=== PATIENT | male | born 1950 | race Hispanic/Latino ===

== ENCOUNTER 2024-11-26 05:49 | Day surgery (SDC) | payer MEDICARE ==
[2024-11-22 11:38] LABS: BASOPHILS # (AUTO) 0.06 K/uL (0.00-0.20); BASOPHILS % (AUTO) 0.7 % (0.0-5.0); EOSINOPHILS # (AUTO) 0.26 K/uL (0.00-0.70); EOSINOPHILS % (AUTO) 2.9 % (0.0-8.0); HEMATOCRIT 41.6 % (42-54); IMMATURE GRANULOCYTE ABSOLUTE 0.03 K/uL (0-1); LYMPHOCYTES # (AUTO) 1.9 K/uL (1.0-4.8); LYMPHOCYTES % (AUTO) 20.8 % (21.0-51.0); MEAN CORPUSCULAR HEMOGLOBIN 30.9 pg (27.0-33.0); MEAN CORPUSCULAR HGB CONC 34.1 g/dL (32.0-36.0); MEAN CORPUSCULAR VOLUME 90.6 fL (79-99); MONOCYTES # (AUTO) 0.8 K/uL (0.1-1.0); MONOCYTES % (AUTO) 9.1 % (3.0-13.0); NEUTROPHILS # (AUTO) 5.9 K/uL (1.8-7.7); NEUTROPHILS % (AUTO) 66.2 % (40.0-77.0); PLATELET COUNT (AUTO) 226 K/uL (130-400); RED BLOOD CELL COUNT(AUTO) 4.59 MIL/uL (4.50-6.20); RED CELL DISTRIBUTION WIDTH 12.3 % (11.0-15.5); WHITE BLOOD COUNT (AUTO) 8.9 K/uL (4.8-10.8)
[2024-11-22 11:42] VITALS: BP 113/64; PULSE 77; RESP 18; TEMP 97.5
[2024-11-22 11:46] LABS: CREATININE 1.3 mg/dL (0.5-1.3); POTASSIUM 5.2 mmol/L (3.5-5.1)
[2024-11-22 11:53] LABS: INR 0.97 (0.85-1.15); PROTHROMBIN TIME 10.3 SEC (9.6-11.6)
[2024-11-22 11:54] LABS: PARTIAL THROMBOPLASTIN TIME 28.2 SEC (26.3-35.5)
--- NOTE | 2024-11-22 12:03 | EKG ---
[facility] Test Date: 2024-11-22 Test Time: 11:28:01 Pat Name: JHONATAN GOLDEN Department: [facility] Room: Gender: M [employer] Technician: [id number] : 1950 Requested By: BA KINNEY Order Number: [id number] Reading MD: Paz Mcclellan Measurements Intervals [place] Rate: 66 P: 67 LA: 169 QRS: 68 QRSD: 130 T: 66 QT: 398 QTc: 418 Interpretive Statements Sinus rhythm Right bundle branch block Inferolateral infarct, old No previous ECG available for comparison Electronically Signed On 11-22-2024 14:10:27 CDT by Paz Mcclellan Please click the below link to view image of tracing.
[2024-11-22 12:10] LABS: B-TYPE NATRIURETIC PEPTIDE 81 pg/mL (0-100)
--- NOTE | 2024-11-22 12:42 | HMCIMG ---
Exam Type: CHEST 1VW Clinical Information: PREOP Comparison: None Findings: Old healed left-sided rib fractures seen. The lungs are clear of infiltrates. The heart is normal in size. The bony and soft tissue structures of the chest are unremarkable. Impression: Clear lungs.
--- NOTE | 2024-11-25 14:37 | NUR ---
RE: LABS REPORTED BMP RESULTS TO DR Kylee KINNEY, NO NEW ORDERS RECEIVED.
[~2024-11-26] VITALS: Ht 167.6 cm; Wt 72.6 kg
[2024-11-26] VITALS (11 sets, daily range): BP systolic 102–114; BP diastolic 53–63; PULSE 60–78; RESP 16–20; TEMP 97–97.3
[~2024-11-26 05:49] MED LIST: AEC81 PO; ALEN70TA80 PO; ATOR40TA69 PO; GLYB-173 PO; LISI5TAB21 PO; TAMS-1 PO
[2024-11-26] MEDS: 0.9%NACL 1000ML 1,000 ML IV SCH (06:46)
[2024-11-26] MEDS ORDERED: LIDOCAINE HCL 400MG/20ML VIAL ONE (07:08)
[2024-11-26] MEDS ORDERED: HEParin 10,000 UNIT/10ML (1,000 UNIT/ML) VIAL ONE (07:09)
[2024-11-26] MEDS ORDERED: HEParin-NS 1,000 UNIT/500 ML 1,000 ML IV ONE (07:09)
[2024-11-26] MEDS ORDERED: NITROGLYCERIN 50MG VIAL ONE (07:10)
[2024-11-26] MEDS ORDERED: IOHEXOL 350 MG/ML 100ML INFUS..BTL IV ONE (07:12)
[2024-11-26] MEDS ORDERED: MIDAZOLAM HCL 1 MG/ML 2ML VIAL ONE ×2 (07:30→07:53)
[2024-11-26] MEDS ORDERED: FENTanyl CITRate PF 50 MCG/1 ML 2ML VIAL ONE (07:30)
[2024-11-26] MEDS ORDERED: VERAPAMIL HCL 2.5 MG/ML VIAL ONE (07:41)
[2024-11-26] MEDS ORDERED: GLUCAGON 1MG KIT 1 MG ML IM PRN (08:30)
[2024-11-26] MEDS ORDERED: DEXTROSE 50%-WATER 50 ML DISP.SYRIN IV PRN (08:30)
[2024-11-26] MEDS ORDERED: 0.9%NACL 1000ML 1,000 ML IV SCH (08:30)
--- NOTE | 2024-11-26 08:36 | PRN ---
PROCEDURE REPORT DATE OF PROCEDURE: Nov 26, 2024 GOLD MARKER: [ Isrrael Lopez MD] PROCEDURE PERFORMED: Conscious sedation Ultrasound guided right radial artery access Ultrasound guided right brachial vein access Selective left coronary artery angiogram Selective right coronary artery angiogram Left heart catheterization Right heart catheterization TR band 13 jaclyn over right radial artery INDICATION: Dyspnea Abnormal CAC score Severe aortic stenosis DESCRIPTION OF PROCEDURE: After informed consent was obtained, the patient was prepped and draped in the usual sterile fashion. A 6 [place] arterial sheath was inserted in the right radial artery using ultrasound guidance with first pass wall puncture. The arterial sheath was aspirated and flushed. A 6 [place] JL 3.5 was then advanced to the ascending aorta over an exchange length J-tip guidewire, was aspirated and flushed, and was used for selective coronary angiograms in multiple obliquities. A JR-4 was advanced in a similar fashion to the ascending aorta over the J-tipped guidewire and was used for selective right coronary angiograms in multiple oblique views with findings as outlined below. The JR-4 catheter advanced into the LV and pressures were obtained with a pull-back across the aortic valve. A TR band was placed over right radial artery. RHC: In a sterile fashion, a wire was advanced through the existing right cephalic vein and sheath was exchanged over the wire. A 5F swan catheter was advanced to the SVC and SaO2 was obtained, then the swan with balloon inflated was advanced to the wedge position and pressures obtained. The catheter was withdrawn into the right PA and oxygen saturations were obtained and pressures. Simultaneously, the arterial oxygen saturation was obtained in the right radial artery. Then, the catheter was withdrawn into the right ventricle and pressures were obtained. The swan was then removed. RHC: mm Hg Mean RA: 5 RV: 26/7 PA: 26/10 (15) PCWP: 9/8 (7) CO/CI: 4.39/2.38 TP PVR: 1.82 SVC O2 sat: 71.8% PA O2 sat: 67.7% Arterial O2 sat: 92% on room air LEFT HEART HEMODYNAMICS: LVEDP 15 mm Hg with a severe gradient across the AV Peak-peak: 78mmHg Mean gradient: 57mmHg BHUPINDER: 0.63cm2 CORONARY ANGIOGRAM: LEFT MAIN: Patent and 0% stenosis. Gives rise to LCx and LAD. LEFT ANTERIOR DESCENDING: Large vessel giving rise to two Diagonal branches. calcified and patent with GERSON 3 flow. LEFT CIRCUMFLEX: Large and gives rise to two OM branches. 40-50% mid stenosis. High OM1 with 50- 60% ostial stenosis. RIGHT CORONARY ARTERY: Large, dominant vessel giving rise to PDA and PL branches. Diffusely calcified and patent. HEMOSTASIS: TR band 12 jaclyn over right radial artery INTERVENTIONS: None. COMPLICATIONS: None FINDINGS: Normal coronary anatomy and mild non-obstructive CAD. Severe aortic stenosis (Mean gradient: 57mmHg with a BHUPINDER of 0.63cm2 by [facility]) ESTIMATED BLOOD LOSS: 5 cc FLUOROSCOPY TIME: 3.2 min RECOMMENDATIONS/INSTRUCTIONS: Aggressive risk factor modification. Refer for TAVR eval CONTRAST DELIVERED TO PATIENT (mL): 50cc MD NIRMAL Benitez JAMES R MD Nov 26, 2024 08:36
[2024-11-26] MEDS: INSULIN humuLIN R 100 UNIT/ML 3ML SQ ONE (09:40)
--- NOTE | 2024-11-26 10:45 | NUR ---
URINARY: PT VOIDED 600CC CLEAR YELLOW COLOR URINE PER URINAL WITHOUT DIFFICULTY.
--- NOTE | 2024-11-26 10:50 | NUR ---
VASC BAND: VASC BAND REMOVED WITH NO ACTIVE BLEEDING PRESENT. CLEANSED AREA WITH CHLORAPREP FOLLOWED BY APPLYING STERILE 2X2 GAUZE THAN 2X2 TEGADERM. NO REDNESS/SWELLING NOTED TO SURROUNDING AREA RT WRIST.
== END 2024-11-26 12:35 | disposition home or self-care (01) ==
LOC: DAH 05:49 → EDSTATUS 09:00 → DAH 12:35
PROVIDERS: ATTEND Student in an Organized Health Care Education/Training Program
DX: I35.0 Nonrheumatic aortic (valve) stenosis (principal); R07.9 Chest pain, unspecified; I25.118 Atherosclerotic heart disease of native coronary artery with other forms of angina pectoris; E78.5 Hyperlipidemia, unspecified; E11.9 Type 2 diabetes mellitus without complications; R06.02 Shortness of breath; R93.1 Abnormal findings on diagnostic imaging of heart and coronary circulation; I45.10 Unspecified right bundle-branch block; I11.9 Hypertensive heart disease without heart failure; Z90.49 Acquired absence of other specified parts of digestive tract; Z79.899 Other long term (current) drug therapy
CPT/HCPCS: 80048; 83880; 85025; 85610; 85730; 36415; 71045; 93005; 93460; 82948 ×2; J1815; Q9965; C1894 ×2; C1769; A4649; J3010; J3490 ×3; J7030; J1644 ×2; J2250 ×2; Q9967; A4215 ×2; A4222; A6260; A4663; A4216; A6206; A4606; A4223 ×3; A4221; 96360; 96361; 99156; 99157